=== PATIENT | male | born 1980 | race Caucasian/White ===

== ENCOUNTER 2024-09-14 12:12 | Emergency (ER) | payer OTHER, SELFPAY ==
[2024-09-14 12:13] VITALS: BP 160/103; PULSE 87; RESP 17; TEMP 37.1; O2SAT 99; BMI 22.6
--- NOTE | 2024-09-14 12:21 | ECG_ITS ---
[id number] Test Date: 2024-09-14 Pat Name: Lazaro Reyna Department: Room: Gender: Male Client Delivery Manager: : 1980 Requested By: Sabine Fischer Order Number: [id number] Los MD: Aashish Gonzalez M.D. Measurements Intervals [place] Rate: 79 P: 31 UT: 148 QRS: 73 QRSD: 74 T: 29 QT: 376 QTc: 431 Interpretive Statements SINUS RHYTHM MINIMAL VOLTAGE CRITERIA FOR LVH, CONSIDER NORMAL VARIANT [MEETS CRITERIA IN ONE OF: R(aVL), S(V1), R(V5), R(V5/V6)+S(V1)] No previous ECG available for comparison Electronically Signed On 09-14-2024 18:33:34 CDT by Aashish Gonzalez M.D. [email or web address] [id number]
[2024-09-14 13:05] LABS: Hematocrit 45.7 % (37-53); Hemoglobin 15.90 g/dL (11.27-16.99); Mean Corpuscular HGB Conc 34.8 g/dL (30-55); Mean Corpuscular Hemoglobin 30.3 pg (27-33); Mean Corpuscular Volume 87.0 fl (82-101); Nucleated Red Blood Cells % 0 %; Platelet Count 234 10^3/cmm (157-399); Red Blood Count 5.25 10^6/uL (3.85-5.65); White Blood Count 7.10 10^3/uL (3.29-11.43)
--- NOTE | 2024-09-14 13:14 | W.ED.GENADLT ---
HPI - General Adult General: Chief complaint: General Medical Stated complaint: HTN Time Seen by Provider: 09/14/24 12:17 History of Present Illness: This patient is a 43 year old brought in by ambulance who reports that he had an episode of feeling weak and tingling while at work. 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 He also has a history of hypertension and checks his BP every morning. He says that it was 180 systolic this morning. He forgot to take his lisinopril 10 mg. He is not on any other medication for hypertension - but he says that the doctors at the [place] have been trying to get his BP under control for 18 years. He recently lost 50 pounds through diet and exercise. He also reports that he had a stroke in the past because he was given too much seroquel. The symptoms he describes today were weakness, tingling in his hands and face, feeling anxious (he has had anxiety attacks). He thinks it was a combination of his elevated blood pressure and the heat. He does note, however, that he has BP that high all the time and doesn't normally have these symptoms. Related Data Home Medications ?Medication ?Instructions ?Recorded ?Confirmed lisinopril 10 mg tablet 10 mg PO DAILY 09/14/24 09/14/24 Previous Rx's ?Medication ?Instructions ?Recorded lisinopril 10 mg tablet 10 mg PO DAILY #30 tabs 09/14/24 Physical Exam Const: COMMON NORMALS: no acute distress, patient oriented x3, no limitations and alert GENERAL APPEARANCE: cooperative and comfortable HENMT: HEAD & SCALP: normal to inspection FACE & SINUS: normal facial exam Eye: GENERAL EYE: appearance normal, both eyes and all related structures Neck/C-Spine: COMMON NORMALS: supple, no meningeal signs and no JVD Chest: COMMONS NORMALS: normal inspection of the chest Resp: COMMON NORMALS: normal respiratory effort, No use of accessory muscles and clear to auscultation bilaterally AUSCULTATION: clear to auscultation bilaterally Cardio: COMMON NORMALS: no JVD, regular rate, regular rhythm and No murmurs present (Cardio) RATE: regular rate RHYTHM: regular rhythm GI: COMMON NORMALS: Normal to inspection, nondistended, normoactive bowel sounds present, Soft to palpation and non-tender INSPECTION: Yes normal to inspection AUSCULTATION: Yes normoactive bowel sounds PALPATION: Yes Soft to palpation Back/Pelvis: COMMON NORMALS: thoracic and lumbar spine normal to inspection Extremity: COMMON NORMALS: normal to inspection Neuro: COMMON NORMALS: patient oriented x3, moves all extremities, no focal motor deficits and no sensory deficits noted SENSORIUM/ORIENTATION: Yes alert MENINGEAL SIGNS: Yes no meningeal signs Psych: COMMON NORMALS: mental status grossly normal, cooperative and normal affect Skin: COMMON NORMALS: no rashes or lesions noted and turgor normal GENERAL SKIN EXAM: no rashes or lesions noted and turgor normal Course Vital Signs: Vital signs: Vital Signs Temperature 98.7 F 09/14/24 12:13 Pulse Rate 81 09/14/24 14:33 Respiratory Rate 17 09/14/24 12:13 Blood Pressure 148/97 09/14/24 14:33 Pulse Oximetry 98 09/14/24 14:33 Oxygen Delivery Me thod Room Air 09/14/24 12:13 MDM - General Adult Medical Decision Making This patient has a history of hypertension which seems to be poorly controlled. Initially he told me he just forgot to take his lisinopril but prior to discharge requested a refill and told me he was out of it. He also works in a very hot environment and probably got overheated today. His workup was unremarkable except for low potassium. This was replaced p.o. He wants to return to work tomorrow and I think he should be safe to do so. We discussed ways to manage in the heat. Lab Data 09/14/24 12:00 09/14/24 12:00 Laboratory Results WBC 7.10 10^3/uL (3.29-11.43) 09/14/24 12:00 RBC 5.25 10^6/uL (3.85-5.65) 09/14/24 12:00 Hgb 15.90 g/dL (11.27-16.99) 09/14/24 12:00 Hct 45.7 % (37-53) 09/14/24 12:00 MCV 87.0 fl (82-101) 09/14/24 12:00 MCH 30.3 pg (27-33) 09/14/24 12:00 MCHC 34.8 g/dL (30-55) 09/14/24 12:00 RDW 13.5 % (12.1-15.1) 09/14/24 12:00 Plt Count 234 10^3/cmm (157-399) 09/14/24 12:00 MPV 11.2 fL (7.4-10.4) H 09/14/24 12:00 Neut % (Auto) 55.1 % 09/14/24 12:00 Lymph % (Auto) 34.2 % 09/14/24 12:00 [place] % (Auto) 8.6 % 09/14/24 12:00 Eos % (Auto) 0.7 % 09/14/24 12:00 Baso % (Auto) 1.0 % 09/14/24 12:00 Neut # (Auto) 3.91 10^3/uL (1.8-7.7) 09/14/24 12:00 Lymph # (Auto) 2.4 10^3/uL (0.8-4.8) 09/14/24 12:00 [place] # (Auto) 0.6 10^3/uL (0.2-0.9) 09/14/24 12:00 Eos # (Auto) 0.1 10^3/uL (0.0-0.8) 09/14/24 12:00 Baso # (Auto) 0.1 10^3/uL (0.0-0.1) 09/14/24 12:00 Nucleated RBC % (auto) 0 % 09/14/24 12:00 Nucleated RBCs # 0.0 /100WBC 09/14/24 12:00 Sodium 139 mmol/L (136-145) 09/14/24 12:00 Potassium 3.0 mmol/L (3.5-5.1) L 09/14/24 12:00 Chloride 100 mmol/L (98-107) 09/14/24 12:00 Carbon Dioxide 19 mmol/L (22-29) L 09/14/24 12:00 Anion Gap 23.0 (5-19) H 09/14/24 12:00 BUN 11 mg/dL (6-20) 09/14/24 12:00 Creatinine 1.0 mg/dL (0.7-1.2) 09/14/24 12:00 GFR Calculation 82.3 mL/min (90-130) L 09/14/24 12:00 Glucose 95 mg/dL (65-115) 09/14/24 12:00 Calculated Osmolality 287 mOsm/kg (285-295) 09/14/24 12:00 Calcium 9.2 mg/dL (8.5-10.5) 09/14/24 12:00 Magnesium 1.9 mg/dL (1.7-2.3) 09/14/24 12:00 Total Bilirubin 0.6 mg/dL (0.15-1.2) 09/14/24 12:00 AST 18 U/L (0-40) 09/14/24 12:00 ALT 19 U/L (0-41) 09/14/24 12:00 Alkaline Phosphatase 93 U/L (40-130) 09/14/24 12:00 Creatine Kinase 126 U/L (39-308) 09/14/24 12:00 Total Protein 7.7 g/dL (6.6-8.7) 09/14/24 12:00 Albumin 4.5 g/dL (3.5-5.2) 09/14/24 12:00 Globulin 3.2 g/dL (1.3-4.6) 09/14/24 12:00 Urine Color Yellow (Yellow) 09/14/24 13:30 Urine Appearance Clear (CLEAR) 09/14/24 13:30 Urine pH 7.0 (5-7) 09/14/24 13:30 Ur Specific [place] 1.015 (1.005-1.030) 09/14/24 13:30 Urine Protein Negative (Negative) 09/14/24 13:30 Urine Glucose (UA) Negative (Normal) 09/14/24 13:30 Urine Ketones Trace (Negative) 09/14/24 13:30 Urine Blood Negative (Negative) 09/14/24 13:30 Urine Nitrate Negative (Negative) 09/14/24 13:30 Urine Bilirubin Negative (Negative) 09/14/24 13:30 Urine Urobilinogen 1.0 mg/dL (Negative) 09/14/24 13:30 Ur Leukocyte Esterase Negative (Negative) 09/14/24 13:30 Urine RBC 0-2 /hpf (0-2) 09/14/24 13:30 Urine WBC 0-5 /hpf (0-5) 09/14/24 13:30 Ur Squamous Epith Cells 0-5 /hpf (0-5) 09/14/24 13:30 Amorphous Sediment Not Reportable 09/14/24 13:30 Urine Bacteria None seen /hpf (NONE) 09/14/24 13:30 Hyaline Casts 0-4 /lpf H 09/14/24 13:30 All radiology interpretation(s) finalized by discharge Discharge Plan Discharge Patient Disposition: Home Clinical Impression: Heat exhaustion, Hypertension, Acute hypokalemia Condition: Stable Prescriptions: New lisinopril 10 mg tablet 10 mg PO DAILY Qty: 30 0RF No Action lisinopril 10 mg Tablet 10 mg PO DAILY Discharge Orders: Discharge ED (Routine); Ordered 09/14/24 Ordered By: Sabine Snyder Patient Instructions: Opioid Safety, Pain Management, Patient Portal & Gutierrez Instructions Stand Alone Forms: Work/School Release Print Language: Tamazight Coding Level of Care Code ED [employer] Operator for Manuel Bear
[2024-09-14 13:23] LABS: Alanine Aminotransferase 19 U/L (0-41); Albumin Level 4.5 g/dL (3.5-5.2); Alkaline Phosphatase 93 U/L (40-130); Anion Gap 23.0 (5-19); Aspartate Amino Transferase 18 U/L (0-40); Blood Urea Nitrogen 11 mg/dL (6-20); Calcium 9.2 mg/dL (8.5-10.5); Carbon Dioxide 19 mmol/L (22-29); Chloride 100 mmol/L (98-107); Creatinine Clr Calc Pharmacy 87.5617; Globulin 3.2 g/dL (1.3-4.6); Glucose 95 mg/dL (65-115); Osmolality Calculated 287 mOsm/kg (285-295); Potassium 3.0 mmol/L (3.5-5.1); Sodium 139 mmol/L (136-145); Total Protein 7.7 g/dL (6.6-8.7)
[2024-09-14 13:53] LABS: Magnesium 1.9 mg/dL (1.7-2.3)
[2024-09-14 14:04] LABS: Glucose Urine UA Negative (Normal); Nitrate Urine Negative (Negative); Specific Gravity, Urine 1.015 (1.005-1.030)
[2024-09-14 14:09] LABS: Add Urine Microscopic? YES
[2024-09-14 14:33] VITALS: BP 148/97; PULSE 81; O2SAT 98
== END 2024-09-14 14:35 | disposition home or self-care (01) ==
PROVIDERS: Emergency Provider Emergency Medicine
DX: T67.5XXA Heat exhaustion, unspecified, initial encounter (principal); X30.XXXA Exposure to excessive natural heat, initial encounter; I10 Essential (primary) hypertension; E87.6 Hypokalemia
CPT/HCPCS: 80053; 81001; 82550; 83735; 85025; 93005; 96360; 96361; 99284; J7030; J9999